=== PATIENT | female | born 1985 | race Caucasian/White ===

== ENCOUNTER 2017-07-28 16:07 | Emergency (ER) | payer SELFPAY ==
[~2017-07-28] VITALS: Ht 167.6 cm; Wt 105.2 kg
[~2017-07-28 16:07] MED LIST: AMOX875T60 PO; CIPR-214 PO; CYCL10TA29 PO; HYDR-385 PO; HYDR-4309 PO; KET10 PO; METH-543 PO; METR-1 PO; MULT1CAP59 PO; ONDA4TAB97 PO; OXYC-865 PO; OXYC-870 PO; PER PO; PRED20TA6 PO; PROM-110 PO
--- NOTE | 2017-07-28 16:19 | ER Report ---
History and Physical Time Seen By MD: 16:18 Hx. of Stated Complaint: PATIENT SLIPPED YESTERDAY AND HURT RIGHT FINGERS HPI/ROS CHIEF COMPLAINT: Fall with right fingers, wrist and shoulder pain HISTORY OF PRESENT ILLNESS: 32-year-old female patient presents to emergency room with complaint of a fall. 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 She states when she fell she smashed her fingers on her right hand, especially fingers 4 and 5. She states that she since then has been having pain in her wrist as well as her shoulder. She denies having any numbness or tingling. 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 LPM told her to follow-up for further evaluation. She states that she has not taken any medication for this. She denies having any fevers, chills, nausea, vomiting or diarrhea. She states that any type of movement seems to hurt the most. REVIEW OF SYSTEMS: Respiratory: No cough, no dyspnea. Cardiovascular: No chest pain, no palpitations. Gastrointestinal: No vomiting, no abdominal pain. Musculoskeletal: As noted above Allergies: Coded Allergies: NSAIDS (Non-Steroidal Anti-Inflamma (Verified Adverse Reaction, Mild, UNKNOWN, 04/27/17) BLOOD IN STOOL Home Meds Discontinued Scripts Hydrocodone Bit/Acetaminophen (NORCO 5-325 TABLET) 1 Each Tablet, 1 EACH PO Q4H Y for PAIN, #10 TAB Prov:BATSHEVA GARDNER DO 04/28/17 Amoxicillin (AMOXICILLIN) 875 Mg Tablet, 1 TAB PO Q12H for infection, #14 TAB Prov:BATSHEVA GARDNER DO 04/25/17 Ketorolac Tromethamine (KETOROLAC TROMETHAMINE) 10 Mg Tab, 10 MG PO Q6H Y for PAIN, #12 TAB Prov:STUART MOJICA MD 04/20/17 Cyclobenzaprine Hcl (CYCLOBENZAPRINE HCL) 10 Mg Tablet, 10 MG PO TID, #9 TAB Prov:STUART MOJICA MD 04/20/17 Methocarbamol (ROBAXIN-750) 750 Mg Tablet, 1 TAB PO TID Y for muscle spasm relief, #20 Prov:BATSHEVA GARDNER DO 03/18/17 Hydrocodone Bit/Acetaminophen (NORCO 5-325 TABLET) 1 Each Tablet, 1 EACH PO Q4H Y for PAIN, #8 TAB Prov:BATSHEVA GARDNER DO 03/18/17 Past Medical/Surgical History Patient has a past medical history of migraines, reflux, cholecystitis, endometriosis, knee fracture, chronic back pain, PTSD, anxiety. Patient has a surgical history of laparoscopy, cholecystectomy, tubal ligation. Patient has a family medical history of cancer, CAD, stroke, diabetes, psychiatric problems. Reviewed Nurses Notes: Yes Hx Smoking: Yes Smoking Status: Former Smoker Hx Substance Use Disorder: No Hx Alcohol Use: No Constitutional Vital Sign - Last 24 Hours 07/28/17 07/28/17 16:13 17:35 Temp 97.9 Pulse 86 74 Resp 19 B/P (MAP) 140/79 119/75 (90) Pulse Ox 97 99 O2 Delivery Room Air Room Air Physical Exam General Appearance: The patient is alert, has no immediate need for airway protection and no current signs of toxicity. Respiratory: Chest is non tender, lungs are clear to auscultation. Cardiac: regular rate and rhythm Gastrointestinal: Abdomen is soft and non tender, no masses, bowel sounds normal. Musculoskeletal: Neck: Neck is supple and non tender. Extremities have full range of motion and are non tender. Patient has some tenderness to the right wrist, fingers #4 and 5, right wrist. There is no swelling or bruising noted. Skin: No rashes or lesions. DIFFERENTIAL DIAGNOSIS: After history and physical exam differential diagnosis was considered for contusion, sprain, fracture. Medical Decision Making EKG/Imaging Imaging INDICATION: fall with pain. DATE: 07/28/2017 5:20 PM. TECHNIQUE: HAND LIMITED RIGHT, WRIST RIGHT MIN 3 VIEW COMPARISON: None FINDINGS: Right wrist: No fracture or dislocation at the wrist. Right hand: No fracture or dislocation at the hand. IMPRESSION: No fracture or dislocation. Report Dictated By: Samara Jimenez MD at 07/28/2017 5:20 PM Report E-Signed By: Samara Jimenez MD at 07/28/2017 5:24 PM INDICATION: fall with pain. Fall with pain DATE: 07/28/2017 5:13 PM. TECHNIQUE: SHOULDER MIN 2 VIEWS RIGHT COMPARISON: None FINDINGS: The humeral head is appropriately aligned at the glenoid. No widening at the AC joint or the coracoclavicular interval. No evidence of fracture or dislocation. IMPRESSION: No fracture or dislocation of the right shoulder. Report Dictated By: Samara Jimenez MD at 07/28/2017 5:13 PM Report E-Signed By: Samara Jimenez MD at 07/28/2017 5:16 PM INDICATION: fall with pain. DATE: 07/28/2017 5:20 PM. TECHNIQUE: HAND LIMITED RIGHT, WRIST RIGHT MIN 3 VIEW COMPARISON: None FINDINGS: Right wrist: No fracture or dislocation at the wrist. Right hand: No fracture or dislocation at the hand. IMPRESSION: No fracture or dislocation. Report Dictated By: Samara Jimenez MD at 07/28/2017 5:20 PM Report E-Signed By: Samara Jimenez MD at 07/28/2017 5:24 PM ED Course/Re-evaluation ED Course Patient was admitted to exam room, history and physical were obtained. Differential diagnoses were considered. X-rays done of the right hand, right wrist, right shoulder. The x-rays were negative. On exam I did not notice any bruising, swelling. I discussed my findings with patient. Patient states that she has the next couple of nights off. I will have her go ahead and rest, ice and take Tylenol for pain. She is to follow-up with her primary care provider if pain persists. She is return to emergency room if condition worsens. The patient verbalized understanding and agreement with plan. Decision to Disposition Date: Jul 28, 2017 Decision to Disposition Time: 17:10 Depart Departure Latest Vital Signs Vital Signs Date Time Temp Pulse Resp B/P (MAP) Pulse Ox O2 Delivery O2 Flow Rate FiO2 07/28/17 17:35 74 119/75 (90) 99 Room Air 07/28/17 16:13 97.9 19 Impression: Primary Impression: Hand contusion Additional Impressions: Right shoulder strain Wrist strain Condition: Improved Disposition: HOME OR SELF-CARE Patient Instructions: Contusion in Adults (ED), Shoulder Sprain (ED), Wrist Sprain (ED) Additional Instructions: Ice hand, wrist and shoulder. Limit activity by pain. Get plenty of rest. Take Tylenol as needed for pain. Follow up with your primary care provider in the next week. Return to the ER if condition worsens. Problem Qualifiers Primary Impression: Hand contusion Encounter type: initial encounter Laterality: right Qualified Codes: S60.221A - Contusion of right hand, initial encounter Additional Impressions: Right shoulder strain Encounter type: initial encounter Qualified Codes: S46.911A - Strain of unspecified muscle, fascia and tendon at shoulder and upper arm level, right arm , initial encounter Wrist strain Encounter type: initial encounter Laterality: right Qualified Codes: S66.911A - Strain of unspecified muscle, fascia and tendon at wrist and hand level, right hand, initial encounter LEANA RIOS Jul 28, 2017 16:19
--- NOTE | 2017-07-28 17:20 | RADIOLOGY IMAGING REPORT ---
FACILITY: [facility] PATIENT NAME: Milena rBo : 1985 MR: [id number] V: [id number] EXAM DATE: ORDERING PHYSICIAN: LEANA RIOS TECHNOLOGIST: Location: [facility] Patient: Milena Bro : 1985 Visit/Account:[id number] Date of Sevice: 07/28/2017 INDICATION: fall with pain. Fall with pain DATE: 07/28/2017 5:13 PM. TECHNIQUE: SHOULDER MIN 2 VIEWS RIGHT COMPARISON: None FINDINGS: The humeral head is appropriately aligned at the glenoid. No widening at the AC joint or th e coracoclavicular interval. No evidence of fracture or dislocation. IMPRESSION: No fracture or dislocation of the right shoulder. Report Dictated By: Samara Jimenez MD at 07/28/2017 5:13 PM Report E-Signed By: Samara Jimenez MD at 07/28/2017 5:16 PM WSN:[id number]
--- NOTE | 2017-07-28 17:28 | RADIOLOGY IMAGING REPORT ---
FACILITY: [facility] PATIENT NAME: Milena Bro : 1985 MR: [id number] V: [id number] EXAM DATE: ORDERING PHYSICIAN: LEANA RIOS TECHNOLOGIST: Location: [facility] [place] Patient: Milena Bro : 1985 Visit/Account:[id number] Date of Sevice: 07/28/2017 INDICATION: fall with pain. DATE: 07/28/2017 5:20 PM. TECHNIQUE: HAND LIMITED RIGHT, WRIST RIGHT MIN 3 VIEW COMPARISON: None FINDINGS: Right wrist: No fracture or dislocation at the wrist. Right hand: No fracture or dislocation at the hand. IMPRESSION: No fracture or dislocation. Report Dictated By: Samara Jimenez MD at 07/28/2017 5:20 PM Report E-Signed By: Samara Jimenez MD at 07/28/2017 5:24 PM WSN:[id number]
--- NOTE | 2017-07-28 17:29 | RADIOLOGY IMAGING REPORT ---
FACILITY: [facility] - [place] PATIENT NAME: Milena Bro : 1985 MR: [id number] V: [id number] EXAM DATE: ORDERING PHYSICIAN: LEANA RIOS TECHNOLOGIST: Location: [facility] - [place] Patient: Milena Bro : 1985 Visit/Account:[id number] Date of Sevice: 07/28/2017 INDICATION: fall with pain. DATE: 07/28/2017 5:20 PM. TECHNIQUE: HAND LIMITED RIGHT, WRIST RIGHT MIN 3 VIEW COMPARISON: None FINDINGS: Right wrist: No fracture or dislocation at the wrist. Right hand: No fracture or dislocation at the hand. IMPRESSION: No fracture or dislocation. Report Dictated By: Samara Jimenez MD at 07/28/2017 5:20 PM Report E-Signed By: Samara Jimenez MD at 07/28/2017 5:24 PM WSN:[id number]
[2017-07-28 17:35] VITALS: BP 119/75
== END 2017-07-28 17:50 | disposition home or self-care (01) ==
LOC: ER 16:20
DX: S60.221A Contusion of right hand, initial encounter (principal); S46.911A Strain of unspecified muscle, fascia and tendon at shoulder and upper arm level, right arm, initial encounter; S66.911A Strain of unspecified muscle, fascia and tendon at wrist and hand level, right hand, initial encounter
CPT/HCPCS: 99283

== ENCOUNTER 2017-08-01 14:28 | Emergency (ER) | payer SELFPAY ==
[~2017-08-01] VITALS: Ht 167.6 cm; Wt 105.2 kg
--- NOTE | 2017-08-01 14:42 | ER Report ---
History and Physical Time Seen By MD: 14:41 Hx. of Stated Complaint: REFERRED FROM [facility] - LEFT FLANK AND ABDO TENDERNESS HPI/ROS CHIEF COMPLAINT: Left-sided rib pain HISTORY OF PRESENT ILLNESS: 32-year-old female patient presents to emergency room with complaint of left-sided rib pain radiates around to the left upper quadrant. Patient states that this is been going on for the last 3 days. Patient states that she is not had any rash or lesion on that side. Patient states the pain is just on left side. She was directed by her work to be evaluated at [facility], concerned about a urinary tract infection. She states she went there, and was evaluated and referred here to the emergency room. Patient denies having any fevers, chills, nausea, vomiting or diarrhea. Patient states that she has pain when she lays on that side, also has pain when she lays on her left side. She states it feels like she is crunching on that side. She states she is not taking any medication for this. REVIEW OF SYSTEMS: Respiratory: No cough, no dyspnea. Cardiovascular: No chest pain, no palpitations. Gastrointestinal: As noted above Musculoskeletal: No back pain. Allergies: Coded Allergies: NSAIDS (Non-Steroidal Anti-Inflamma (Verified Adverse Reaction, Mild, UNKNOWN, 08/01/17) BLOOD IN STOOL Home Meds Active Scripts Phenazopyridine Hcl (PHENAZOPYRIDINE HCL) 200 Mg Tablet, 200 MG PO TID, #15 TAB Prov:LEANA RIOS 08/01/17 Sulfamethoxazole/Trimet 800-160 Mg Tab (BACTRIM DS TABLET) 1 Each Tablet, 1 TAB PO Q12H, #14 TAB Prov:LEANA RIOS 08/01/17 Discontinued Scripts Hydrocodone Bit/Acetaminophen (NORCO 5-325 TABLET) 1 Each Tablet, 1 EACH PO Q4H Y for PAIN, #10 TAB Prov:BATSHEVA GARDNER DO 04/28/17 Amoxicillin (AMOXICILLIN) 875 Mg Tablet, 1 TAB PO Q12H for infection, #14 TAB Prov:BATSHEVA GARDNER DO 04/25/17 Ketorolac Tromethamine (KETOROLAC TROMETHAMINE) 10 Mg Tab, 10 MG PO Q6H Y for PAIN, #12 TAB Prov:STUART MOJICA MD 04/20/17 Cyclobenzaprine Hcl (CYCLOBENZAPRINE HCL) 10 Mg Tablet, 10 MG PO TID, #9 TAB Prov:STUART MOJICA MD 04/20/17 Methocarbamol (ROBAXIN-750) 750 Mg Tablet, 1 TAB PO TID Y for muscle spasm relief, #20 Prov:BATSHEVA GARDNER DO 03/18/17 Hydrocodone Bit/Acetaminophen (NORCO 5-325 TABLET) 1 Each Tablet, 1 EACH PO Q4H Y for PAIN, #8 TAB Prov:BATSHEVA GARDNER DO 03/18/17 Past Medical/Surgical History Patient has a past medical history of migraines, reflux, cholecystitis, endometriosis, knee fracture, back pain, PTSD, anxiety. Patient has a surgical history of laparoscopy, cholecystectomy, tubal ligation. Patient has a family medical history of cancer, CAD, stroke, diabetes, psychiatric problems. Hx Smoking: Yes Smoking Status: Former Smoker Hx Substance Use Disorder: No Hx Alcohol Use: No Constitutional Vital Sign - Last 24 Hours 08/01/17 08/01/17 08/01/17 08/01/17 14:35 14:36 14:39 15:00 Temp 98.7 Pulse 88 82 Resp 18 B/P (MAP) 129/72 (91) 129/72 119/61 (80) 120/72 (88) Pulse Ox 94 91 O2 Delivery Room Air 08/01/17 08/01/17 08/01/17 16:36 17:00 17:11 Pulse 80 B/P (MAP) 135/77 (96) 122/82 (95) 117/73 (88) Pulse Ox 93 Physical Exam General Appearance: The patient is alert, has no immediate need for airway protection and no current signs of toxicity. ENT: Tympanic membranes are pearly-macedo, auditory canals are patent, mucous membranes are moist. Respiratory: Chest is non tender, lungs are clear to auscultation. Cardiac: regular rate and rhythm Gastrointestinal: Abdomen is soft and tender in the left upper quadrant, pain seems to radiate around to the back., no masses, bowel sounds normal. Musculoskeletal: Neck: Neck is supple and non tender. Extremities have full range of motion and are non tender. Skin: No rashes or lesions. DIFFERENTIAL DIAGNOSIS: After history and physical exam differential diagnosis was considered for abdominal pain including but not limited to appendicitis, cholecystitis, gastritis and urinary tract infection. Included in differential is herpes zoster. Medical Decision Making Data Points Result Diagram: 08/01/17 1536 08/01/17 1536 Laboratory Hematology Test 08/01/17 15:35 08/01/17 15:36 Urine Color Yellow Urine Clarity Slightly-cloudy Urine pH 7.0 pH (4.8-9.5) Urine Specific [place] 1.029 Urine Protein Negative mg/dL (NEGATIVE) Urine Glucose (UA) Negative mg/dL (NEGATIVE) Urine Ketones Negative mg/dL (NEGATIVE) Urine Blood Negative (NEGATIVE) Urine Nitrite Negative (NEGATIVE) Urine Bilirubin Negative (NEGATIVE) Urine Urobilinogen 4.0 mg/dL (0.2-1.9) Urine Leukocyte Esterase Trace (NEGATIVE) Urine RBC None /HPF (0-2/HPF) Urine WBC 26 /HPF (0-5/HPF) Urine Squamous Epithelial Cells Many /LPF (</=FEW) Urine Bacteria Negative /HPF (NONE-FEW) Urine Mucus None /HPF (NONE-FEW) Red Blood Count 4.75 M/uL (4.17-5.56) Mean Corpuscular Volume 83.7 fL (80.0-96.0) Mean Corpuscular Hemoglobin 28.8 pg (26.0-33.0) Mean Corpuscular Hemoglobin Concent 34.4 g/dL (32.0-36.0) Red Cell Distribution Width 12.9 % (11.5-14.5) Mean Platelet Volume 6.8 fL (7.2-11.1) Neutrophils (%) (Auto) 70.6 % (39.4-72.5) Lymphocytes (%) (Auto) 18.0 % (17.6-49.6) Monocytes (%) (Auto) 9.2 % (4.1-12.4) Eosinophils (%) (Auto) 1.6 % (0.4-6.7) Basophils (%) (Auto) 0.6 % (0.3-1.4) Nucleated RBC Relative Count (auto) 0.0 /100WBC Neutrophils # (Auto) 5.1 K/uL (2.0-7.4) Lymphocytes # (Auto) 1.3 K/uL (1.3-3.6) Monocytes # (Auto) 0.7 K/uL (0.3-1.0) Eosinophils # (Auto) 0.1 K/uL (0.0-0.5) Basophils # (Auto) 0.0 K/uL (0.0-0.1) Nucleated RBC Absolute Count (auto) 0.00 K/uL Sodium Level 137 mmol/L (137-145) Potassium Level 3.6 mmol/L (3.5-5.0) Chloride Level 102 mmol/L (98-107) Carbon Dioxide Level 25 mmol/L (22-31) Blood Urea Nitrogen 8 mg/dl (7-18) Creatinine 0.80 mg/dl (0.52-1.04) Glomerular Filtration Rate Calc > 60.0 Random Glucose 92 mg/dl (75-110) Calcium Level 9.0 mg/dl (8.4-10.2) Total Bilirubin 0.8 mg/dl (0.2-1.3) Aspartate Amino Transf (AST/SGOT) 14 U/L (0-35) Alanine Aminotransferase (ALT/SGPT) 29 U/L (0-56) Alkaline Phosphatase 52 U/L (0-126) C-Reactive Protein 5.9 mg/dl (<1.0) Total Protein 6.8 gm/dl (6.3-8.2) Albumin 3.7 g/dl (3.5-5.0) Amylase Level 48 U/L (0-110) Lipase 35 U/L (23-300) Chemistry Test 08/01/17 15:35 08/01/17 15:36 Urine Color Yellow Urine Clarity Slightly-cloudy Urine pH 7.0 pH (4.8-9.5) Urine Specific [place] 1.029 Urine Protein Negative mg/dL (NEGATIVE) Urine Glucose (UA) Negative mg/dL (NEGATIVE) Urine Ketones Negative mg/dL (NEGATIVE) Urine Blood Negative (NEGATIVE) Urine Nitrite Negative (NEGATIVE) Urine Bilirubin Negative (NEGATIVE) Urine Urobilinogen 4.0 mg/dL (0.2-1.9) Urine Leukocyte Esterase Trace (NEGATIVE) Urine RBC None /HPF (0-2/HPF) Urine WBC 26 /HPF (0-5/HPF) Urine Squamous Epithelial Cells Many /LPF (</=FEW) Urine Bacteria Negative /HPF (NONE-FEW) Urine Mucus None /HPF (NONE-FEW) White Blood Count 7.3 k/uL (4.5-11.0) Red Blood Count 4.75 M/uL (4.17-5.56) Hemoglobin 13.7 g/dL (12.0-16.0) Hematocrit 39.8 % (34.0-47.0) Mean Corpuscular Volume 83.7 fL (80.0-96.0) Mean Corpuscular Hemoglobin 28.8 pg (26.0-33.0) Mean Corpuscular Hemoglobin Concent 34.4 g/dL (32.0-36.0) Red Cell Distribution Width 12.9 % (11.5-14.5) Platelet Count 290 K/uL (150-450) Mean Platelet Volume 6.8 fL (7.2-11.1) Neutrophils (%) (Auto) 70.6 % (39.4-72.5) Lymphocytes (%) (Auto) 18.0 % (17.6-49.6) Monocytes (%) (Auto) 9.2 % (4.1-12.4) Eosinophils (%) (Auto) 1.6 % (0.4-6.7) Basophils (%) (Auto) 0.6 % (0.3-1.4) Nucleated RBC Relative Count (auto) 0.0 /100WBC Neutrophils # (Auto) 5.1 K/uL (2.0-7.4) Lymphocytes # (Auto) 1.3 K/uL (1.3-3.6) Monocytes # (Auto) 0.7 K/uL (0.3-1.0) Eosinophils # (Auto) 0.1 K/uL (0.0-0.5) Basophils # (Auto) 0.0 K/uL (0.0-0.1) Nucleated RBC Absolute Count (auto) 0.00 K/uL Glomerular Filtration Rate Calc > 60.0 Calcium Level 9.0 mg/dl (8.4-10.2) Total Bilirubin 0.8 mg/dl (0.2-1.3) Aspartate Amino Transf (AST/SGOT) 14 U/L (0-35) Alanine Aminotransferase (ALT/SGPT) 29 U/L (0-56) Alkaline Phosphatase 52 U/L (0-126) C-Reactive Protein 5.9 mg/dl (<1.0) Total Protein 6.8 gm/dl (6.3-8.2) Albumin 3.7 g/dl (3.5-5.0) Amylase Level 48 U/L (0-110) Lipase 35 U/L (23-300) Urinalysis Test 08/01/17 15:35 Urine Color Yellow Urine Clarity Slightly-cloudy Urine pH 7.0 pH (4.8-9.5) Urine Specific [place] 1.029 Urine Protein Negative mg/dL (NEGATIVE) Urine Glucose (UA) Negative mg/dL (NEGATIVE) Urine Ketones Negative mg/dL (NEGATIVE) Urine Blood Negative (NEGATIVE) Urine Nitrite Negative (NEGATIVE) Urine Bilirubin Negative (NEGATIVE) Urine Urobilinogen 4.0 mg/dL (0.2-1.9) Urine Leukocyte Esterase Trace (NEGATIVE) Urine RBC None /HPF (0-2/HPF) Urine WBC 26 /HPF (0-5/HPF) Urine Squamous Epithelial Cells Many /LPF (</=FEW) Urine Bacteria Negative /HPF (NONE-FEW) Urine Mucus None /HPF (NONE-FEW) EKG/Imaging Imaging ABDOMEN/PELVIS WITH CONTRAST HISTORY: Left flank pain x3 days TECHNIQUE: Following administration of IV contrast contiguous axial images acquired through the abdomen/pelvis. Coronal and sagittal reformatting also performed. CONTRAST: 75 mL Isovue-370 COMPARISON: January 08, 2017 FINDINGS: Visualized lung bases: Negative. Hepatobiliary: Postsurgical changes from a cholecystectomy Spleen: Negative. Adrenals: Negative. Pancreas: Negative. Kidneys ureters or bladder: There is no evidence of hydronephrosis or hydroureter. There is subtle decreased perfusion in the upper pole and lower pole of the left kidney possibly related to pyelonephritis given the clinical history of left flank pain Genitalia: Retroverted uterus. 2.2 cm left ovarian cyst GI: The appendix is visualized and does not appear inflamed . This no evidence of bowel wall thickening or bowel obstruction Vessels/spaces/nodes: There are small shotty retroperitoneal lymph nodes Bones/soft tissues: Tiny umbilical hernia containing fat. No aggressive appearing bone lesions are seen Additional findings: None pertinent. IMPRESSION: There is a 2.2 cm left ovarian cyst Post surgical changes from a cholecystectomy Tiny umbilical hernia containing fat No evidence of hydronephrosis or hydroureter. There is subtle decreased perfusion seen in the upper pole and lower pole of the left kidney. This could be the reflection of pyelonephritis given the clinical history of left flank pain. Clinical correlation needed Report Dictated By: Makenna Mendez MD at 08/01/2017 4:27 PM Report E-Signed By: Makenna Mendez MD at 08/01/2017 4:35 PM ED Course/Re-evaluation ED Course Patient was admitted to exam room, history and physical were obtained. Differential diagnoses were considered. On examination patient had tenderness from her back around to the front. A CBC, CMP, urinalysis and hCG were obtained. Patient had a normal white count, however she had leukocyte esterase in her urine as well as 26 white cells per high-power field. Patient had a negative hCG. CT scan of abdomen and pelvis was done. Patient some decreased blood flow to the poles which could be consistent with a pyelonephritis. I discussed findings with the patient. With her CT scan and with her urinalysis with patient does have a pyelonephritis. I discussed this with the patient. We will go ahead and start her on antibiotics as well as Pyridium. Patient verbalized understanding and agreement. Decision to Disposition Date: Aug 01, 2017 Decision to Disposition Time: 17:02 Depart Departure Latest Vital Signs Vital Signs Date Time Temp Pulse Resp B/P (MAP) Pulse Ox O2 Delivery O2 Flow Rate FiO2 08/01/17 17:11 117/73 (88) 08/01/17 17:00 80 93 08/01/17 14:36 98.7 18 Room Air Impression: Primary Impression: Pyelonephritis Condition: Improved Disposition: HOME OR SELF-CARE New Scripts Phenazopyridine Hcl (PHENAZOPYRIDINE HCL) 200 Mg Tablet 200 MG PO TID, #15 TAB Prov: LEANA RIOS 08/01/17 Sulfamethoxazole/Trimet 800-160 Mg Tab (BACTRIM DS TABLET) 1 Each Tablet 1 TAB PO Q12H, #14 TAB Prov: LEANA RIOS 08/01/17 Patient Instructions: Urinary Tract Infection in Women (ED) Additional Instructions: Increase fluid intake. Get plenty of rest. We are culturing your urine and will call if we need to change antibiotics. Follow up with your primary care provider in the next week. Return to the ER if condition worsens. Continue with your normal medications. LEANA RIOS Aug 01, 2017 14:41
[2017-08-01] MEDS ORDERED: NS(*) 0.9% 1000 ML BAG 1,000 ML IV ONE (14:49)
[2017-08-01] MEDS ORDERED: IOPAMIDOL 76% 75 ML INFUS BTL 75 ML ONE (15:12)
[2017-08-01] MEDS ORDERED: NS 0.9% 50 ML VIAL 50 ML ONE (15:12)
[2017-08-01] MEDS ORDERED: KETOROLAC 30 MG/ML VIAL IVP ONE (15:30)
[2017-08-01 15:42] LABS: PLATELET COUNT, AUTOMATED 290 K/uL (150-450)
--- NOTE | 2017-08-01 16:39 | RADIOLOGY IMAGING REPORT ---
FACILITY: [facility] [place] PATIENT NAME: Milena Bro : 1985 MR: [id number] V: [id number] EXAM DATE: ORDERING PHYSICIAN: LEANA RIOS TECHNOLOGIST: Location: [facility] - [place] Patient: Milena Bro : 1985 Visit/Account:[id number] Date of Sevice: 08/01/2017 ABDOMEN/PELVIS WITH CONTRAST HISTORY: Left flank pain x3 days TECHNIQUE: Following administration of IV contrast contiguous axial images acquired through the abdom en/pelvis. Coronal and sagittal reformatting also performed. CONTRAST: 75 mL Isovue-370 COMPARISON: January 08, 2017 FINDINGS: Visualized lung bases: Negative. Hepatobiliary: Postsurgical changes from a cholecystectomy Spleen: Negative. Adrenals: Negative. Pancreas: Negative. Kidneys ureters or bladder: There is no evidence of hydronephrosis or hydroureter. There is subtle d ecreased perfusion in the upper pole and lower pole of the left kidney possibly related to pyelonephr itis given the clinical history of left flank pain Genitalia: Retroverted uterus. 2.2 cm left ovarian cyst GI: The appendix is visualized and does not appear inflamed . This no evidence of bowel wall thicke chapo or bowel obstruction Vessels/spaces/nodes: There are small shotty retroperitoneal lymph nodes Bones/soft tissues: Tiny umbilical hernia containing fat. No aggressive appearing bone lesions are seen Additional findings: None pertinent. IMPRESSION: There is a 2.2 cm left ovarian cyst Post surgical changes from a cholecystectomy Tiny umbilical hernia containing fat No evidence of hydronephrosis or hydroureter. There is subtle decreased perfusion seen in the upper pole and lower pole of the left kidney. This c ould be the reflection of pyelonephritis given the clinical history of left flank pain. Clinical cor relation needed Report Dictated By: Makenna Mendez MD at 08/01/2017 4:27 PM Report E-Signed By: Makenna Mendez MD at 08/01/2017 4:35 PM WSN:[id number]
[2017-08-01] MEDS ORDERED: SULF-198 PO (17:00)
[2017-08-01] MEDS ORDERED: PHEN200T32 PO (17:00)
[2017-08-01 17:11] VITALS: BP 117/73
== END 2017-08-01 17:19 | disposition home or self-care (01) ==
LOC: ER 14:29
DX: N12 Tubulo-interstitial nephritis, not specified as acute or chronic (principal)
CPT/HCPCS: 36415; 74177; 81001; 82150; 83690; 85025; 86140; 87077; 87088; 87186; 96374; 99284; J1885; J7050; Q9967; 82040; 82247; 82310; 82374; 82435; 82565; 82947; 84075; 84132; 84155; 84295; 84450; 84460; 84520

== ENCOUNTER 2017-08-10 22:16 | Emergency (ER) | payer SELFPAY ==
[~2017-08-10] VITALS: Ht 165.1 cm; Wt 105.2 kg
[~2017-08-10 22:16] MED LIST changes: +PHEN200T32 PO; +SULF-198 PO
--- NOTE | 2017-08-10 22:27 | ER Report ---
History and Physical Time Seen By MD: 22:27 Hx. of Stated Complaint: PATIENT STATES THAT AROUND 1400 HER LEFT EYE WAS DILATED; PATIENT ALSO FELT LETHARGIC AND DIZZY. HPI/ROS CHIEF COMPLAINT: dizziness and large left pupil. HISTORY OF PRESENT ILLNESS: This is a 32 year old female. She came to the ER tonight because of some changes in her left pupil. These were noted today at about 1400 hours. She had some blurred vision in the left eye as well. Normal vision in right eye. She denies headache, but has been dizzy. The dizzy feeling happened twice while she was at work.. It is difficult to describe and sounds like more of an off balance feeling and some light headed feeling. No real report of vertigo. She does get migraine headaches at times, but no headache now. Feels fatigued and some generalized weakness throughout the day. No recent illness, no fevers or chills. Feels a little short of breath at times. No chest pain or palpitations. No loss of bowel or bladder control. No dysuria or frequency, no urgency. No diarrhea or constipation. Feels hypersensitivity of her scalp, bilaterally at top of scalp and extending to the nape of her neck. Says that she cannot feel her legs, bilaterally, from the waist down. Normal sensation of the arms today. Allergies: Coded Allergies: NSAIDS (Non-Steroidal Anti-Inflamma (Verified Adverse Reaction, Mild, UNKNOWN, 08/01/17) BLOOD IN STOOL Home Meds Active Scripts Phenazopyridine Hcl (PHENAZOPYRIDINE HCL) 200 Mg Tablet, 200 MG PO TID, #15 TAB Prov:LEANA RIOS 08/01/17 Sulfamethoxazole/Trimet 800-160 Mg Tab (BACTRIM DS TABLET) 1 Each Tablet, 1 TAB PO Q12H, #14 TAB Prov:LEANA RIOS 08/01/17 Reviewed Nurses Notes: Yes Hx Smoking: Yes Smoking Status: Former Smoker Hx Substance Use Disorder: No Hx Alcohol Use: No Constitutional Vital Sign - Last 24 Hours 08/10/17 08/10/17 08/10/17 08/10/17 22:20 22:22 22:30 22:46 Temp 98.5 Pulse 77 83 Resp 18 B/P (MAP) 126/76 (93) 126/76 128/87 (101) Pulse Ox 95 96 O2 Delivery Room Air 08/10/17 08/10/17 08/10/17 08/10/17 23:00 23:16 23:30 23:46 Pulse 68 63 B/P (MAP) 110/73 (85) 112/68 (83) Pulse Ox 94 95 08/11/17 08/11/17 08/11/17 08/11/17 00:00 00:05 00:30 00:35 Pulse ??? 65 B/P (MAP) 101/75 (84) ???/??? (1665) Pulse Ox 97 96 08/11/17 08/11/17 08/11/17 08/11/17 00:56 01:00 01:05 02:16 B/P (MAP) 111/74 (86) 119/81 (94) 123/67 (85) Pulse Ox 97 08/11/17 08/11/17 08/11/17 08/11/17 02:30 02:30 02:35 02:40 Pulse 69 66 B/P (MAP) 109/65 (80) Pulse Ox 95 96 O2 Delivery Nasal Cannula O2 Flow Rate 1.0 1 08/11/17 08/11/17 08/11/17 08/11/17 03:00 03:10 03:23 03:28 Pulse 67 67 B/P (MAP) 109/56 (73) Pulse Ox 96 95 08/11/17 08/11/17 08/11/17 08/11/17 03:30 03:35 03:50 04:00 Pulse 69 61 B/P (MAP) 106/58 (74) 93/63 (73) Pulse Ox 96 08/11/17 08/11/17 08/11/17 08/11/17 04:05 04:20 04:30 04:35 Pulse 63 64 63 B/P (MAP) 104/54 (71) Pulse Ox 96 97 97 08/11/17 08/11/17 08/11/17 08/11/17 04:50 04:55 05:07 05:22 Pulse 59 78 82 Resp 16 B/P (MAP) 113/75 (88) 115/72 (86) Pulse Ox 97 96 95 O2 Delivery Room Air Physical Exam General Appearance: The patient is alert. Appears anxious, but not severely so. Eyes: Pupils are round, the right measuring about 2-3 mm and the left about 4- 5mm. Reactive to light. No pallor, injection or icterus. Extraocular movements are intact. No nystagmus. Light sensitive, left eye greater than the right eye. Funduscopic exam was done as well and normal cup:disc ratio. ENT: Mucous membranes are moist. Normal oral mucosa. Posterior oropharynx is normal. Normal nasal mucosa. Neck: Supple and non tender. Respiratory: Breathing easily and unlabored. Lungs are clear to auscultation. Cardiovascular: Regular rate and rhythm. No murmurs, gallops or rubs. Normal capillary refill. No edema. Gastrointestinal: Abdomen is soft and non tender. Nondistended. Normal active bowel sounds. No costovertebral angle tenderness with percussion. Neurological: Alert and oriented x3. Cranial nerve exam with the pupillary change noted above. Midline tongue, symmetric palate elevation, no facial weakness, normal facial sensation. Hypersensitivity of the scalp bilaterally. The extremities show weakness of 4/5 on the left with 5/5 on the right in both upper and lower extremities. Less sensation present on the left arm and left leg. Reflexes are diminished throughout and are equal between left and right. Feels off balance, but normal cerebellar signs. Able to walk to the bathroom and in exam room, but feels off balance. Skin: Warm and dry. No rashes. Musculoskeletal: Extremities are nontender. Full range of motion. No tenderness in palpation of the cervical, thoracic and lumbar spine. DIFFERENTIAL DIAGNOSIS: After history and physical exam, differential diagnosis was considered for a patient with left greater than right pupil, dizziness and off balance feeling, hypersensitivity of scalp, and weakness with decreased sensation in the left arm and leg, but equal reflexes. Will evaluate for neurologic causes such as stroke, neurodegenerative disease, but could also be atypical migraines. Medical Decision Making Data Points Result Diagram: 08/10/17214908/10/172149 Laboratory Hematology Test 08/10/17 21:50 Red Blood Count 4.60 M/uL (4.17-5.56) Mean Corpuscular Volume 82.4 fL (80.0-96.0) Mean Corpuscular Hemoglobin 28.6 pg (26.0-33.0) Mean Corpuscular Hemoglobin Concent 34.7 g/dL (32.0-36.0) Red Cell Distribution Width 13.1 % (11.5-14.5) Mean Platelet Volume 6.5 fL (7.2-11.1) Neutrophils (%) (Auto) 64.9 % (39.4-72.5) Lymphocytes (%) (Auto) 27.3 % (17.6-49.6) Monocytes (%) (Auto) 4.8 % (4.1-12.4) Eosinophils (%) (Auto) 2.3 % (0.4-6.7) Basophils (%) (Auto) 0.7 % (0.3-1.4) Nucleated RBC Relative Count (auto) 0.0 /100WBC Neutrophils # (Auto) 4.2 K/uL (2.0-7.4) Lymphocytes # (Auto) 1.8 K/uL (1.3-3.6) Monocytes # (Auto) 0.3 K/uL (0.3-1.0) Eosinophils # (Auto) 0.2 K/uL (0.0-0.5) Basophils # (Auto) 0.0 K/uL (0.0-0.1) Nucleated RBC Absolute Count (auto) 0.00 K/uL Erythrocyte Sedimentation Rate 25 mm/HOUR (0-20) Prothrombin Time 13.0 seconds (12.0-14.4) Prothromb Time International Ratio 0.98 Activated Partial Thromboplast Time 28 seconds (23-35) Sodium Level 137 mmol/L (137-145) Potassium Level 3.7 mmol/L (3.5-5.0) Chloride Level 104 mmol/L (98-107) Carbon Dioxide Level 23 mmol/L (22-31) Blood Urea Nitrogen 13 mg/dl (7-18) Creatinine 0.90 mg/dl (0.52-1.04) Glomerular Filtration Rate Calc > 60.0 Random Glucose 89 mg/dl (75-110) Calcium Level 9.3 mg/dl (8.4-10.2) Total Bilirubin 0.3 mg/dl (0.2-1.3) Aspartate Amino Transf (AST/SGOT) 16 U/L (0-35) Alanine Aminotransferase (ALT/SGPT) 30 U/L (0-56) Alkaline Phosphatase 49 U/L (0-126) Troponin I < 0.012 ng/ml C-Reactive Protein 0.7 mg/dl (<1.0) Total Protein 6.9 gm/dl (6.3-8.2) Albumin 3.7 g/dl (3.5-5.0) Chemistry Test 08/10/17 21:50 White Blood Count 6.5 k/uL (4.5-11.0) Red Blood Count 4.60 M/uL (4.17-5.56) Hemoglobin 13.1 g/dL (12.0-16.0) Hematocrit 37.8 % (34.0-47.0) Mean Corpuscular Volume 82.4 fL (80.0-96.0) Mean Corpuscular Hemoglobin 28.6 pg (26.0-33.0) Mean Corpuscular Hemoglobin Concent 34.7 g/dL (32.0-36.0) Red Cell Distribution Width 13.1 % (11.5-14.5) Platelet Count 348 K/uL (150-450) Mean Platelet Volume 6.5 fL (7.2-11.1) Neutrophils (%) (Auto) 64.9 % (39.4-72.5) Lymphocytes (%) (Auto) 27.3 % (17.6-49.6) Monocytes (%) (Auto) 4.8 % (4.1-12.4) Eosinophils (%) (Auto) 2.3 % (0.4-6.7) Basophils (%) (Auto) 0.7 % (0.3-1.4) Nucleated RBC Relative Count (auto) 0.0 /100WBC Neutrophils # (Auto) 4.2 K/uL (2.0-7.4) Lymphocytes # (Auto) 1.8 K/uL (1.3-3.6) Monocytes # (Auto) 0.3 K/uL (0.3-1.0) Eosinophils # (Auto) 0.2 K/uL (0.0-0.5) Basophils # (Auto) 0.0 K/uL (0.0-0.1) Nucleated RBC Absolute Count (auto) 0.00 K/uL Erythrocyte Sedimentation Rate 25 mm/HOUR (0-20) Prothrombin Time 13.0 seconds (12.0-14.4) Prothromb Time International Ratio 0.98 Activated Partial Thromboplast Time 28 seconds (23-35) Glomerular Filtration Rate Calc > 60.0 Calcium Level 9.3 mg/dl (8.4-10.2) Total Bilirubin 0.3 mg/dl (0.2-1.3) Aspartate Amino Transf (AST/SGOT) 16 U/L (0-35) Alanine Aminotransferase (ALT/SGPT) 30 U/L (0-56) Alkaline Phosphatase 49 U/L (0-126) Troponin I < 0.012 ng/ml C-Reactive Protein 0.7 mg/dl (<1.0) Total Protein 6.9 gm/dl (6.3-8.2) Albumin 3.7 g/dl (3.5-5.0) Coagulation Test 08/10/17 21:50 Prothrombin Time 13.0 seconds Prothromb Time International Ratio 0.98 Activated Partial Thromboplast Time 28 seconds EKG/Imaging EKG Interpretation 12 lead EKG: Rhythm: normal sinus rhythm, rate 67 Emblem: normal QRS: Right bundle branch block, incomplete ST segments: Nonspecific T changes, no ST elevation or depression Imaging SINGLE AP RADIOGRAPH OF THE CHEST 08/10/2017 10:40 PM. INDICATION: Dizziness. COMPARISON: None. FINDINGS: Lungs are well-expanded. There is no consolidation. No pleural effusion or pneumothorax. Heart size is normal. IMPRESSION: No acute abnormality. Report Dictated By: Aj Madden MD at 08/10/2017 11:[address]: Indication: Dizziness. Dilated left pupil. Technique: Contiguous axial sections were obtained from the base to the vertex without contrast enhancement. One of the following dose optimization techniques was utilized in the performance of this exam: Automated exposure control; adjustment of the mA and/ or kV according to the patient's size; or use of an iterative reconstruction technique. Specific details can be referenced in the facility's radiology CT exam operational policy. Comparison: None. Findings: There is no evidence of intra-axial or extra-axial hemorrhage. No focal areas of decreased or increased attenuation are identified. There is no evidence of mass, edema, or shift of the midline structures. The size, shape, and configuration of the ventricular system are normal. The optic globes, optic nerves, and extraocular muscles appear symmetrical and unremarkable, as visualized. No retro-orbital soft tissue abnormality or inflammatory changes are identified. The skeletal structures are intact and unremarkable. The visualized paranasal sinuses and mastoid air cells are clear. Impression: Unremarkable unenhanced head CT. Report Dictated By: Devante Silva MD at 08/10/2017 11:26 PM MRI of the brain, without and with contrast: Indication: Weakness. Dilated left pupil. Technique: MRI was performed before and after contrast enhancement with 15 cc of MultiHance, utilizing multiple axial, coronal, and sagittal T1-weighted, T2- weighted, FLAIR, diffusion weighted, and gradient echo sequences. Some of the sequences are limited by motion artifact. Comparison: CT scan from 08/10/2017. Findings: There are no signs of intra-axial or extra-axial hemorrhage. No extra- axial mass or fluid collection is identified. There is no evidence of intra- axial mass, edema, or focal signal abnormality. There are no focal areas of restricted diffusion to suggest the presence of acute ischemia. The contrast enhancement pattern appears symmetrical and unremarkable. The ventricular structures appear symmetrical and unremarkable. There are no signs of midline shift. The orbital contents and periorbital soft tissues appear symmetrical and unremarkable. The skeletal structures are unremarkable, as visualized. The paranasal sinuses and mastoid air cells are clear. Impression: Unremarkable study. Report Dictated By: Devante Silva MD at 08/11/2017 2:20 AM ED Course/Re-evaluation Clinical Indication for ER IV: Hydration, IV Access ED Course After the physical exam, concern for neurodegenerative or stroke was present although the physical exam findings were not completely consistent with physiologic area of effect. CT scan obtained and was normal. Labs unremarkable. MRI of the brain with and without contrast as above and normal. Called and spoke with [employer] superintendent neurology at [facility]. Based on exam, uncertain diagnosis. Recommendation for ophthalmologic evaluation and further neurologic evaluation as an outpatient. Re-evaluation of the patient after she awoke. She was very sedated with the Ativan 0.5mg IV given to help with MRI claustrophobia. Once she had awakened. Pupils are unchanged. Strength testing is inconsistent, with some areas normal strength, some that are normal for a few seconds and then gives way after a few seconds and then shows weakness. The patient expressed understanding that she needs to see child and family services specialist and neurology for further evaluation as an outpatient. Decision to Disposition Date: Aug 11, 2017 Decision to Disposition Time: 03:07 Depart Departure Latest Vital Signs Vital Signs Date Time Temp Pulse Resp B/P (MAP) Pulse Ox O2 Delivery O2 Flow Rate FiO2 08/11/17 05:22 82 16 115/72 (86) 95 Room Air 08/11/17 02:35 1 08/10/17 22:22 98.5 Impression: Primary Impression: Pupillary abnormality of left eye Additional Impression: Left-sided muscle weakness Condition: Condition Unchanged Disposition: HOME OR SELF-CARE Patient Instructions: Weakness (ED) Additional Instructions: On your evaluation tonight, we did not find any evidence of a stroke in the brain. Further evaluation as an outpatient with neurology will be needed. You can call the hospital here to see if and when we have a visiting neurologist available that you could see. The neurologists associated with the [facility] can see you as an outpatient as well. Their office number is [phone]. We recommend that you have a formal eye evaluation with an child and family services specialist this Saturday as well. We recommend that you are off work today until further evaluation can be done. Problem Qualifiers GIOVANNI CADET MD Aug 10, 2017 22:27
[2017-08-10 23:03] LABS: PLATELET COUNT, AUTOMATED 348 K/uL (150-450)
[2017-08-10 23:13] LABS: INR 0.98
--- NOTE | 2017-08-10 23:36 | RADIOLOGY IMAGING REPORT ---
FACILITY: [facility] PATIENT NAME: Mliena Bro : 1985 MR: [id number] V: [id number] EXAM DATE: ORDERING PHYSICIAN: GIOVANNI CADET TECHNOLOGIST: Location: Patient: Milena Bro : 1985 Visit/Account:[id number] Date of Sevice: 08/10/[address]: Indication: Dizziness. Dilated left pupil. Technique: Contiguous axial sections were obtained from the base to the vertex without contrast enhan cement. One of the following dose optimization techniques was utilized in the performance of this exam: Autom ated exposure control; adjustment of the mA and/or kV according to the patient's size; or use of an i terative reconstruction technique. Specific details can be referenced in the facility's radiology CT exam operational policy. Comparison: None. Findings: There is no evidence of intra-axial or extra-axial hemorrhage. No focal areas of decreased or increased attenuation are identified. There is no evidence of mass, edema, or shift of the midline structures. The size, shape, and configuration of the ventricular system are normal. The optic globes, optic nerves, and extraocular muscles appear symmetrical and unremarkable, as visua lized. No retro-orbital soft tissue abnormality or inflammatory changes are identified. The skeletal structures are intact and unremarkable. The visualized paranasal sinuses and mastoid air cells are clear. Impression: Unremarkable unenhanced head CT. Report Dictated By: Devante Silva MD at 08/10/2017 11:26 PM Report E-Signed By: Devante Silva MD at 08/10/2017 11:31 PM WSN:[id number]
--- NOTE | 2017-08-10 23:36 | RADIOLOGY IMAGING REPORT ---
FACILITY: [facility] [place] PATIENT NAME: Milena Bro : 1985 MR: [id number] V: [id number] EXAM DATE: ORDERING PHYSICIAN: GIOVANNI CADET TECHNOLOGIST: Location: [facility] [place] Patient: Milena Bro : 1985 Visit/Account:[id number] Date of Sevice: 08/10/2017 SINGLE AP RADIOGRAPH OF THE CHEST 08/10/2017 10:40 PM. INDICATION: Dizziness. COMPARISON: None. FINDINGS: Lungs are well-expanded. There is no consolidation. No pleural effusion or pneumothorax. Heart size i s normal. IMPRESSION: No acute abnormality. Report Dictated By: Aj Madden MD at 08/10/2017 11:26 PM Report E-Signed By: Aj Madden MD at 08/10/2017 11:30 PM WSN:[id number]
[2017-08-11] MEDS ORDERED: GADOBENATE 529MG/1ML 15ML VIAL IVP ONE (00:02)
--- NOTE | 2017-08-11 00:02 | EKG ---
FACILITY: [facility] PATIENT NAME: KEYANNA LEMUS : [id number] MR: [id number] V: [id number] EXAM DATE: ORDERING PHYSICIAN: GIOVANNI CADET TECHNOLOGIST: Test Reason : Blood Pressure : / mmHG Vent. Rate : 067 BPM Atrial Rate : 067 BPM P-R Int : 162 ms QRS Dur : 106 ms QT Int : 410 ms P-R-T Axes : 013 033 009 degrees QTc Int : 433 ms Normal sinus rhythm Incomplete right bundle branch block Borderline ECG When compared with ECG of 08-JAN-2017 18:01, No significant change was found Confirmed by AMANDA REYNA ([id number]) on 08/11/2017 6:54:30 AM Referred By: Confirmed By:AMANDA REYNA
[2017-08-11] MEDS ORDERED: LORazepam 2 MG/ML VIAL IVP ONE (01:25)
--- NOTE | 2017-08-11 02:36 | RADIOLOGY IMAGING REPORT ---
FACILITY: [facility] PATIENT NAME: Milena Bro : 1985 MR: [id number] V: [id number] EXAM DATE: ORDERING PHYSICIAN: GIOVANNI CADET TECHNOLOGIST: Location: [facility] [place] Patient: Milena Bro : 1985 Visit/Account:[id number] Date of Sevice: 08/10/2017 MRI of the brain, without and with contrast: Indication: Weakness. Dilated left pupil. Technique: MRI was performed before and after contrast enhancement with 15 cc of MultiHance, utilizin g multiple axial, coronal, and sagittal T1-weighted, T2-weighted, FLAIR, diffusion weighted, and grad ient echo sequences. Some of the sequences are limited by motion artifact. Comparison: CT scan from 08/10/2017. Findings: There are no signs of intra-axial or extra-axial hemorrhage. No extra-axial mass or fluid c ollection is identified. There is no evidence of intra-axial mass, edema, or focal signal abnormality . There are no focal areas of restricted diffusion to suggest the presence of acute ischemia. The con trast enhancement pattern appears symmetrical and unremarkable. The ventricular structures appear sym metrical and unremarkable. There are no signs of midline shift. The orbital contents and periorbital soft tissues appear symmetrical and unremarkable. The skeletal s tructures are unremarkable, as visualized. The paranasal sinuses and mastoid air cells are clear. Impression: Unremarkable study. Report Dictated By: Devante Silva MD at 08/11/2017 2:20 AM Report E-Signed By: Devante Silva MD at 08/11/2017 2:31 AM WSN:[id number]
[2017-08-11 05:22] VITALS: BP 115/72
== END 2017-08-11 05:26 | disposition home or self-care (01) ==
LOC: ER 22:26
DX: H21.562 Pupillary abnormality, left eye (principal); M62.81 Muscle weakness (generalized); I45.10 Unspecified right bundle-branch block; Z87.891 Personal history of nicotine dependence
CPT/HCPCS: 70450; 70553; 71045; 84484; 85025; 85610; 85651; 85730; 86140; 93005; 96374; 99284; A9577; J2060; 82040; 82247; 82310; 82374; 82435; 82565; 82947; 84075; 84132; 84155; 84295; 84450; 84460; 84520

== ENCOUNTER 2017-10-22 07:48 | Emergency (ER) | payer OTHER ==
--- NOTE | 2017-10-22 07:52 | ER Report ---
History and Physical Time Seen By MD: 07:52 HPI/ROS CHIEF COMPLAINT: Dyspnea HISTORY OF PRESENT ILLNESS: 32-year-old nonsmoker denies asthma presents with dyspnea 4 days associated with a cough, chest pain described as tightness difficulty moving air onset 4 days ago and worsening no fevers chills nausea or vomiting no other concerns or complaints today REVIEW OF SYSTEMS: Constitutional: No fever, no chills. Eyes: No discharge. ENT: + sore throat. Cardiovascular: No palpitations no syncope no edema Respiratory: Otherwise negative Gastrointestinal: No abdominal pain, no vomiting. Genitourinary: No hematuria. Musculoskeletal: No back pain. Skin: No rashes. Neurological: No headache. Allergies: Coded Allergies: NSAIDS (Non-Steroidal Anti-Inflamma (Verified Adverse Reaction, Mild, UNKNOWN, 10/22/17) BLOOD IN STOOL Home Meds Discontinued Scripts Phenazopyridine Hcl (PHENAZOPYRIDINE HCL) 200 Mg Tablet, 200 MG PO TID, #15 TAB Prov:LEANA RIOS 08/01/17 Sulfamethoxazole/Trimet 800-160 Mg Tab (BACTRIM DS TABLET) 1 Each Tablet, 1 TAB PO Q12H, #14 TAB Prov:LEANA RIOS [facility] 08/01/17 Hx Smoking: Yes Smoking Status: Former Smoker Hx Substance Use Disorder: No Hx Alcohol Use: No Constitutional Vital Sign - Last 24 Hours 10/22/17 10/22/17 10/22/17 10/22/17 07:52 07:52 08:10 08:18 Temp 97.9 Pulse 88 86 91 Resp 20 18 B/P (MAP) 126/111 (116) 126/111 Pulse Ox 94 99 O2 Delivery Room Air Physical Exam General Appearance: The patient is alert, has no immediate need for airway protection and no current signs of toxicity. She appears to be in mild distress due to dyspnea Eyes: Pupils equal and round no injection. Phayrx: normal appearance of oropharyx; no erythma, no exudates, no midline shift Respiratory: Decreased breath sounds diffusely bilaterally, expiratory wheezing is worse with coughing Cardiac: regular rate and rhythm no murmurs gallops or rubs Gastrointestinal: Abdomen is soft and non tender, no masses, bowel sounds normal. Musculoskeletal: Neck: Neck is supple and non tender. Extremities have full range of motion and are non tender. Skin: No rashes or lesions. No edema DIFFERENTIAL DIAGNOSIS: After history and physical exam differential diagnosis was considered for ACS; pneumothorax pneumonia pneumomediastinum likely include cough cold bronchitis exclude pneumonia Medical Decision Making Data Points Result Diagram: 10/22/17 0810 10/22/17 0810 Laboratory Hematology Test 10/22/17 08:10 Red Blood Count 4.73 M/uL (4.17-5.56) Mean Corpuscular Volume 82.7 fL (80.0-96.0) Mean Corpuscular Hemoglobin 28.9 pg (26.0-33.0) Mean Corpuscular Hemoglobin Concent 34.9 g/dL (32.0-36.0) Red Cell Distribution Width 13.4 % (11.5-14.5) Mean Platelet Volume 6.8 fL (7.2-11.1) Neutrophils (%) (Auto) 65.8 % (39.4-72.5) Lymphocytes (%) (Auto) 21.8 % (17.6-49.6) Monocytes (%) (Auto) 7.6 % (4.1-12.4) Eosinophils (%) (Auto) 4.2 % (0.4-6.7) Basophils (%) (Auto) 0.6 % (0.3-1.4) Nucleated RBC Relative Count (auto) 0.0 /100WBC Neutrophils # (Auto) 5.4 K/uL (2.0-7.4) Lymphocytes # (Auto) 1.8 K/uL (1.3-3.6) Monocytes # (Auto) 0.6 K/uL (0.3-1.0) Eosinophils # (Auto) 0.3 K/uL (0.0-0.5) Basophils # (Auto) 0.0 K/uL (0.0-0.1) Nucleated RBC Absolute Count (auto) 0.00 K/uL Sodium Level 141 mmol/L (137-145) Potassium Level 3.5 mmol/L (3.5-5.0) Chloride Level 104 mmol/L (98-107) Carbon Dioxide Level 25 mmol/L (22-31) Blood Urea Nitrogen 14 mg/dl (7-18) Creatinine 0.90 mg/dl (0.52-1.04) Glomerular Filtration Rate Calc > 60.0 Random Glucose 114 mg/dl (75-110) Calcium Level 9.4 mg/dl (8.4-10.2) Total Bilirubin 0.5 mg/dl (0.2-1.3) Aspartate Amino Transf (AST/SGOT) 19 U/L (0-35) Alanine Aminotransferase (ALT/SGPT) 29 U/L (0-56) Alkaline Phosphatase 62 U/L (0-126) Troponin I < 0.012 ng/ml Total Protein 7.1 gm/dl (6.3-8.2) Albumin 3.7 g/dl (3.5-5.0) Chemistry Test 10/22/17 08:10 White Blood Count 8.2 k/uL (4.5-11.0) Red Blood Count 4.73 M/uL (4.17-5.56) Hemoglobin 13.7 g/dL (12.0-16.0) Hematocrit 39.1 % (34.0-47.0) Mean Corpuscular Volume 82.7 fL (80.0-96.0) Mean Corpuscular Hemoglobin 28.9 pg (26.0-33.0) Mean Corpuscular Hemoglobin Concent 34.9 g/dL (32.0-36.0) Red Cell Distribution Width 13.4 % (11.5-14.5) Platelet Count 331 K/uL (150-450) Mean Platelet Volume 6.8 fL (7.2-11.1) Neutrophils (%) (Auto) 65.8 % (39.4-72.5) Lymphocytes (%) (Auto) 21.8 % (17.6-49.6) Monocytes (%) (Auto) 7.6 % (4.1-12.4) Eosinophils (%) (Auto) 4.2 % (0.4-6.7) Basophils (%) (Auto) 0.6 % (0.3-1.4) Nucleated RBC Relative Count (auto) 0.0 /100WBC Neutrophils # (Auto) 5.4 K/uL (2.0-7.4) Lymphocytes # (Auto) 1.8 K/uL (1.3-3.6) Monocytes # (Auto) 0.6 K/uL (0.3-1.0) Eosinophils # (Auto) 0.3 K/uL (0.0-0.5) Basophils # (Auto) 0.0 K/uL (0.0-0.1) Nucleated RBC Absolute Count (auto) 0.00 K/uL Glomerular Filtration Rate Calc > 60.0 Calcium Level 9.4 mg/dl (8.4-10.2) Total Bilirubin 0.5 mg/dl (0.2-1.3) Aspartate Amino Transf (AST/SGOT) 19 U/L (0-35) Alanine Aminotransferase (ALT/SGPT) 29 U/L (0-56) Alkaline Phosphatase 62 U/L (0-126) Troponin I < 0.012 ng/ml Total Protein 7.1 gm/dl (6.3-8.2) Albumin 3.7 g/dl (3.5-5.0) EKG/Imaging EKG Interpretation EKG performed 10/22/2017 at 07 50 6 AM my read normal sinus rhythm with a normal ventricular rate normal OR QRS and QTc intervals no ST or T-wave changes to suggest ischemia or infarction overall impression normal EKG. Computer read appreciated. Imaging X-ray image reviewed. Radiology report reviewed the results were discussed with the patient. ED Course/Re-evaluation ED Course Plan of care is agreed upon prior to orders placed. An EKG was performed. Chest x-ray to exclude pneumonia pneumothorax pulmonary edema or other pathology. Labwork was performed to assess for infection and inflammation and cardiac strain. Decision to Disposition Date: Oct 22, 2017 Decision to Disposition Time: 09:10 Depart Departure Latest Vital Signs Vital Signs Date Time Temp Pulse Resp B/P (MAP) Pulse Ox O2 Delivery O2 Flow Rate FiO2 10/22/17 08:18 91 99 10/22/17 08:10 18 10/22/17 07:52 97.9 126/111 Room Air Impression: Primary Impression: Acute viral bronchiolitis Additional Impression: Acute viral conjunctivitis of both eyes Condition: Improved Disposition: HOME OR SELF-CARE New Scripts Prednisone (PREDNISONE) 20 Mg Tablet 40 MG PO DAILY Y for ANXIETY for 5 Days, #10 TAB Prov: TERELL LATIF MD 10/22/17 Albuterol Sulfate 90 Mcg/Act (PROAIR HFA 90 MCG/ACT) 8.5 Gm Hfa.aer.ad 1-2 PUFF IH 3-4XD for wheezing for 10 Days, #2 INHALER Use spacer as directed for better results Prov: TERELL LATIF MD 10/22/17 Patient Instructions: Acute Bronchitis (ED), Conjunctivitis (ED) Problem Qualifiers TERELL LATIF MD Oct 22, 2017 07:52
[2017-10-22] MEDS ORDERED: ALBUTEROL 2.5 MG/0.5ML ER ONLY NEB ONE (08:00)
[2017-10-22] MEDS ORDERED: methylPREDNIS SUCC 125 MG/2ML IVP ONE (08:00)
[2017-10-22] MEDS ORDERED: IPRATROPIUM 0.5MG/2.5ML NEB NEB ONE (08:00)
[2017-10-22 08:29] LABS: PLATELET COUNT, AUTOMATED 331 K/uL (150-450)
--- NOTE | 2017-10-22 08:44 | RADIOLOGY IMAGING REPORT ---
[facility] PATIENT NAME: Milena Bro : 1985 MR: [id number] V: [id number] EXAM DATE: ORDERING PHYSICIAN: TERELL LATIF TECHNOLOGIST: Location: [facility] Patient: Milena Bro : 1985 Visit/Account:[id number] Date of Sevice: 10/22/2017 Exam type: CHEST SINGLE AP History: wheezing, dyspnea; for edema Comparison: August 10, 2017. Findings: The lungs are free of acute effusions, infiltrates or edema. Oxygen mask projects over the left uppe r thorax. There is no evidence of a pneumothorax or pneumomediastinum. The cardiac silhouette is no rmal. IMPRESSION: 1. No acute cardiac pulmonary process is seen Report Dictated By: Makenna Mendez MD at 10/22/2017 8:37 AM Report E-Signed By: Makenna Mendez MD at 10/22/2017 8:38 AM WSN:[id number]
[2017-10-22] MEDS ORDERED: PRED20TA6 PO (09:13)
[2017-10-22] MEDS ORDERED: ALBU8.5H IH (09:13)
[2017-10-22 09:19] VITALS: BP 115/71
--- NOTE | 2017-10-22 11:14 | EKG ---
FAC[place] [facility] [place]IENT NAME: KEYANNA LEMUS : [id number] MR: [id number] V: [id number] EXAM DATE: ORDERING PHYSICIAN: TERELL LATIF TECHNOLOGIST: KARINE Test Reason : SOB Blood Pressure : / mmHG Vent. Rate : 082 BPM Atrial Rate : 082 BPM P-R Int : 146 ms QRS Dur : 092 ms QT Int : 378 ms P-R-T Axes : 061 041 041 degrees QTc Int : 441 ms Sinus rhythm No acute appearing findings When compared with ECG of 10-AUG-2017 22:53, No significant change was found Confirmed by RENAN CAREY ([id number]) on 10/23/2017 5:38:36 AM Referred By: SALOMON Confirmed By:RENAN CAREY
== END 2017-10-22 09:25 | disposition home or self-care (01) ==
LOC: ER 07:56
DX: J21.9 Acute bronchiolitis, unspecified (principal); H10.33 Unspecified acute conjunctivitis, bilateral
CPT/HCPCS: 71045; 84484; 85025; 93005; 94644; 96374; 99284; J2930; J7611; J7644; 82040; 82247; 82310; 82374; 82435; 82565; 82947; 84075; 84132; 84155; 84295; 84450; 84460; 84520

== ENCOUNTER 2017-12-10 08:00 | Emergency (ER) | payer OTHER ==
[~2017-12-10 08:00] MED LIST changes: +ALBU8.5H IH
--- NOTE | 2017-12-10 08:03 | ER Report ---
History and Physical Time Seen By MD: 08:02 HPI/ROS CHIEF COMPLAINT: Swollen gland on neck HISTORY OF PRESENT ILLNESS: Patient is a 32-year-old female who complains of approximate 4 days of left-sided sore throat, left-sided lymphadenopathy with pain and pain that radiates to the ear. She denies any fevers or chills. 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 She reports that at times she ends up with pharyngitis. She states that she feels similar at this time. Patient denies any neck stiffness. She denies any headache. She denies any chest pain but reports a dry cough occasionally. REVIEW OF SYSTEMS: Respiratory: Dry cough Cardiovascular: No chest pain, no palpitations. Gastrointestinal: No vomiting, no abdominal pain. Musculoskeletal: No back pain. Lymphatics: Left anterior adenopathy Allergies: Coded Allergies: NSAIDS (Non-Steroidal Anti-Inflamma (Verified Adverse Reaction, Mild, UNKNOWN, 10/22/17) BLOOD IN STOOL Home Meds Discontinued Scripts Prednisone (PREDNISONE) 20 Mg Tablet, 40 MG PO DAILY Y for ANXIETY for 5 Days, # 10 TAB Prov:TERELL LATIF MD 10/22/17 Albuterol Sulfate 90 Mcg/Act (PROAIR HFA 90 MCG/ACT) 8.5 Gm Hfa.aer.ad, 1-2 PUFF IH 3-4XD for wheezing for 10 Days, #2 INHALER Use spacer as directed for better results Prov:TERELL LATIF MD 10/22/17 Past Medical/Surgical History Chronically colonized with strep Hx Smoking: Yes Smoking Status: Former Smoker Hx Substance Use Disorder: No Hx Alcohol Use: No Constitutional Vital Sign - Last 24 Hours 12/10/17 08:03 Temp 98.4 Pulse 85 Resp 20 B/P (MAP) 140/100 Pulse Ox 93 O2 Delivery Room Air Physical Exam General Appearance: The patient is alert, has no immediate need for airway protection and no current signs of toxicity. Eyes: Pupils equal and round no injection. ENT: TMs and canals are clear bilaterally. Oropharynx is clear there is no exudate or palatal petechiae there is mild left erythema to the tonsillar area. Neck is supple Respiratory: Chest is non tender, lungs are clear to auscultation. Cardiac: regular rate and rhythm Gastrointestinal: Abdomen is soft and non tender, no masses, bowel sounds normal. Musculoskeletal: Neck: Neck is supple and non tender. Extremities have full range of motion and are non tender. Neck is supple. Patient has tender anterior cervical adenopathy on the left side. Skin: No rashes or lesions. Medical Decision Making ED Course/Re-evaluation ED Course 12/10/2017 8:27:40 am plan at this time will be to treat the patient conservatively with oral antibiotics and steroids. We will give a course of Pepcid while on steroids. Patient counseled that if symptoms persist after one week she is to follow-up with ear nose and throat. We will provide contact information. Patient understands if symptoms worsen in any time she should return to the emergency department for further evaluation. Decision to Disposition Date: December 10, 2017 Decision to Disposition Time: 08:28 Depart Departure Latest Vital Signs Vital Signs Date Time Temp Pulse Resp B/P (MAP) Pulse Ox O2 Delivery O2 Flow Rate FiO2 12/10/17 08:03 98.4 85 20 140/100 93 Room Air Impression: Primary Impression: Lymphadenitis Condition: Improved Disposition: HOME OR SELF-CARE Referrals: DANIELITO DESHPANDE JR, MD 1 Week if symptoms persist New Scripts Famotidine (PEPCID) 20 Mg Tablet 20 MG PO QDAY, #10 TAB 0 Refills Prov: HERIBERTO BRUNO MD 12/10/17 Prednisone (PREDNISONE) 20 Mg Tablet 60 MG PO QDAY, #15 TAB 0 Refills Prov: HERIBERTO BRUNO MD 12/10/17 Amoxicillin/Pot Clav 875-125 Mg Tab (AUGMENTIN 875-125 TABLET) 1 Each Tablet 1 TAB PO Q12H, #14 TAB 0 Refills Prov: HERIBERTO BRUNO MD 12/10/17 Patient Instructions: Lymphangitis (ED) Additional Instructions: If your symptoms persist greater than 7 days and the completion of her antibiotics she should follow-up with Dr. Danielito Deshpande. Uric given his contact information. Be sure to take all your medications as prescribed. HERIBERTO BRUNO MD December 10, 2017 08:03
[2017-12-10 08:30] VITALS: BP 135/94
[2017-12-10] MEDS ORDERED: AMOX-559 PO (08:30)
[2017-12-10] MEDS ORDERED: PRED20TA6 PO (08:30)
[2017-12-10] MEDS ORDERED: FAMO20TA28 PO (08:30)
== END 2017-12-10 08:38 | disposition home or self-care (01) ==
LOC: ER 08:05
DX: I88.9 Nonspecific lymphadenitis, unspecified (principal)
CPT/HCPCS: 99282